=== PATIENT | female | born 1990 | race Caucasian/White ===

== ENCOUNTER 2018-03-18 10:16 | Emergency (ER) | payer OTHER ==
[~2018-03-18] VITALS: Ht 162.6 cm; Wt 83.9 kg
[~2018-03-18 10:16] MED LIST: KEFLEX500 MG PO; NORCO 5-325 TA1 EACH PO
[2018-03-18] MEDS ORDERED: ALEVE220 MG PO (10:24)
[2018-03-18] MEDS ORDERED: NORCO 5-325 TA1 EACH PO (11:25)
[2018-03-18] MEDS ORDERED: CLEOCIN HCL150 MG PO (11:25)
[2018-03-18 11:46] VITALS: BP 128/78
== END 2018-03-18 11:46 | disposition home or self-care (01) ==
LOC: ER 10:16
PROC: 0H98XZZ Drainage of Buttock Skin, External Approach (ICD-10-PCS; principal; 2018-03-18)
DX: L05.01 Pilonidal cyst with abscess (principal); E03.9 Hypothyroidism, unspecified; Z88.1 Allergy status to other antibiotic agents; Z98.890 Other specified postprocedural states